=== PATIENT | female | born 1965 | race American Indian/Alaskan Native ===

== ENCOUNTER 2017-11-29 12:56 | Outpatient (CLI) | payer BC ==
--- NOTE | 2017-11-30 14:45 | Magnetic Resonance Report ---
BILATERAL BREAST MRI WITHOUT AND WITH CONTRAST: 11/29/17 12:56:00 CLINICAL: Family history of breast cancer. COMPARISON:08/09/17 screening mammogram. TECHNIQUE: Axial 1.0-mm T1 without, axial high resolution 2.0-mm T2 and axial 1.0-mm dynamic Vibrant high-resolution postcontrast T1 fat saturation sequences on a 1.5 Dennise magnet. The examination was performed with an 8 channel dedicated [employer] breast coil. Post processing with CAD and subtraction was performed on an [employer] workstation. 18.0 cc of Multihance was injected without incident for the contrast portion of the exam. Consent was obtained prior to the administration of the contrast. FINDINGS: Right: Minimal background parenchymal enhancement. No mass or suspicious enhancement. No suspicious right axillary or right internal mammary lymph nodes. Left: Minimal background parenchymal enhancement. Irregular focal non-Mass enhancement at 9 o'clock approximately 6 cm from the nipple measures 13.9 x 8.0 x 5.3 mm. It demonstrates heterogeneous enhancement with mixed kinetics, 119% peak enhancement, 95% type I persistent, 5% type II plateau and 0% type III washout waveforms. There is no mammographic correlate. No other suspicious enhancement. No suspicious left axillary or left internal mammary lymph nodes. IMPRESSION: Mildly suspicious focal non-Mass enhancement of the left breast at 9 o'clock 6 cm from the nipple. Recommend targeted left breast ultrasound to determine if there is an identifiable lesion to guide ultrasound biopsy. Consider MRI directed needle biopsy if the ultrasound is negative. RIGHT BI-RADS 1 -- Negative LEFT BI-RADS 0 -- Need Additional Imaging
== END 2017-11-29 12:57 | disposition home or self-care (01) ==
LOC: SPVIMAG 12:56
PROVIDERS: ATTEND Surgery
DX: R92.2 Inconclusive mammogram (principal); I10 Essential (primary) hypertension; E78.00 Pure hypercholesterolemia, unspecified; Z80.3 Family history of malignant neoplasm of breast
CPT/HCPCS: A9577; C8908; 77059

== ENCOUNTER 2017-12-13 07:59 | Outpatient (CLI) | payer BC ==
--- NOTE | 2017-12-13 09:36 | Ultrasound Report ---
TARGETED LEFT BREAST ULTRASOUND: 12/13/17 07:59:00 CLINICAL: Abnormal MRI with focal non-Mass enhancement at 9 o'clock 6 cm from the nipple. COMPARISON: 11/29/17 MRI FINDINGS: Ultrasound of the left breast was performed from 8 o'clock to 10 o'clock and demonstrated normal fibroglandular structures with no mass or shadowing to correlate with the MRI finding. IMPRESSION: Negative left breast ultrasound. Recommend MRI guided needle biopsy of the focal non-Mass enhancement in the left breast at 9 o'clock. BI-RADS 4A--Mildly Suspicious
== END 2017-12-13 08:00 | disposition home or self-care (01) ==
LOC: SPVWC 07:59
PROVIDERS: ATTEND Surgery
DX: R92.8 Other abnormal and inconclusive findings on diagnostic imaging of breast (principal); I10 Essential (primary) hypertension; E78.00 Pure hypercholesterolemia, unspecified

== ENCOUNTER 2017-12-20 10:58 | Outpatient (CLI) | payer BC ==
--- NOTE | 2017-12-20 16:40 | Magnetic Resonance Report ---
MRI GUIDED VACUUM ASSISTED CORE BIOPSY LEFT BREAST: 12/20/17 10:58:00 CLINICAL: Suspicious focal non-Mass enhancement identified on 11/29/17 MRI FINDINGS: Consent for the procedure was obtained. A Vibrant dynamic postcontrast series was performed on a 1.5 Dennise magnet using an 8 channel [employer] dedicated breast coil. The lesion was localized and targeted using [employer] biopsy software. The skin was anesthetized with 1% lidocaine and a small dermatotomy was made. 2% lidocaine was administered for deeper anesthesia. 9-G biopsy was performed with an [employer] vacuum assisted device from a medial approach. Imaging demonstrated satisfactory positioning of the probe and samples were obtained. A clip was placed after confirmation of adequate sampling. The probe was removed and hemostasis was achieved with pressure to the site. A sterile dressing was applied. The patient tolerated the procedure well and there were no apparent complications. A two view mammogram demonstrated no localizer clip. She was then taken to ultrasound and a hydro-otoniel was deployed at the site using the post biopsy seroma as a marker. A repeat mammogram demonstrated successful clip deployment and concordant clip placement. The patient left the department in good condition with instructions for wound care and follow-up. IMPRESSION: Uncomplicated MRI biopsy with clip placement left breast.
--- NOTE | 2017-12-21 08:06 | Mammography Report ---
LEFT DIGITAL DIAGNOSTIC MAMMOGRAM and ULTRASOUND-GUIDED CLIP PLACEMENT LEFT BREAST: 12/20/17 10:58:00 CLINICAL: For clip placement immediately status post MRI biopsy. FINDINGS: A two-view mammogram demonstrated no localizer clip from the MRI biopsy. The patient was taken to ultrasound and using sterile technique, local anesthesia with 1% lidocaine and ultrasound guidance, a hydro-otoniel clip was deployed within a well visualized biopsy cavity. A repeat two-view mammogram demonstrated concordant clip placement. IMPRESSION: Concordant clip placement status post MRI guided needle biopsy. BI-RADS CATEGORY: 4--Suspicious Pathology pending.
== END 2017-12-20 10:59 | disposition home or self-care (01) ==
LOC: SPVIMAG 10:58
PROVIDERS: ATTEND Surgery
DX: N60.12 Diffuse cystic mastopathy of left breast (principal); E78.00 Pure hypercholesterolemia, unspecified; I10 Essential (primary) hypertension
CPT/HCPCS: 19085; 76999; 77065; 88305; A9577

== ENCOUNTER 2018-06-10 10:10 | Outpatient (CLI) | payer BC ==
--- NOTE | 2018-06-10 15:19 | Mammography Report ---
LEFT DIGITAL DIAGNOSTIC MAMMOGRAM with CAD: 06/10/18 10:10:00 CLINICAL: Follow-up after benign MRI guided needle biopsy of focal non-Mass enhancement 12/20/17. COMPARISON:12/20/17 FINDINGS: The breast is heterogeneously dense, which may obscure small masses. An upper inner biopsy clip correlates with the MRI biopsy site. No mass, architectural distortion or suspicious calcifications. IMPRESSION: No mammographic evidence of malignancy. BI-RADS CATEGORY: 2 -- Benign RECOMMENDATION: Return to routine mammographic screening. ACR BI-RADS MAMMOGRAPHIC CODES: 0 = Needs additional imaging evaluation; 1 = Negative; 2 = Benign; 3 = Probably benign; 4 = Suspicious; 5 = Malignant; 6 = Known biopsy-proven malignancy COMMENT: 1. Dense breast tissue, i.e., adenosis, fibrocystic changes, etc., may obscure an underlying neoplasm. 2. Approximately 10% of cancers are not detected with mammography. 3. A negative mammography report should not delay biopsy if a clinically suspicious mass is present. COMMENT: Patient follow-up letters are generated by our [employer] application.
--- NOTE | 2018-06-12 11:08 | Magnetic Resonance Report ---
BILATERAL BREAST MRI WITHOUT AND WITH CONTRAST: 06/10/18 10:10:00 CLINICAL: Family history of breast cancer and status post left MRI benign breast biopsy 12/20/17 with pathology of benign breast tissue with nonproliferative fibrocystic changes. COMPARISON:11/29/17 and 12/20/17. TECHNIQUE: Axial 1.0-mm T1 without, axial high resolution 2.0-mm T2 and axial 1.0-mm dynamic Vibrant high-resolution postcontrast T1 fat saturation sequences on a 1.5 Dennise magnet. The examination was performed with an 8 channel dedicated [employer] breast coil. Post processing with CAD and subtraction was performed on an [employer] workstation. 19.0 cc of Multihance was injected without incident for the contrast portion of the exam. Consent was obtained prior to the administration of the contrast. FINDINGS: Right: Minimal background parenchymal enhancement. No mass or suspicious enhancement. No suspicious lymph nodes. Left: Minimal background parenchymal enhancement. No mass or suspicious enhancement. The previously described focal non-Mass enhancement of the upper inner breast is no longer identified. No suspicious lymph nodes. IMPRESSION: Normal study. Recommend routine mammographic screening. BI-RADS 1 - - Negative
== END 2018-06-10 10:11 | disposition home or self-care (01) ==
LOC: SPVWC 10:10
PROVIDERS: ATTEND Surgery
DX: R92.2 Inconclusive mammogram (principal); I10 Essential (primary) hypertension; E78.00 Pure hypercholesterolemia, unspecified
CPT/HCPCS: 77065; A9577; C8908; 77049

== ENCOUNTER 2020-12-01 08:46 | Outpatient (CLI) | payer BC ==
--- NOTE | 2020-12-02 09:22 | Mammography Report ---
DIGITAL SCREENING MAMMOGRAM WITH CAD, 12/01/2020 CLINICAL INFORMATION / INDICATION: Routine screening mammography. 3D SCREENING MAMMO TECHNIQUE: Digital bilateral 2D mammography was obtained in the craniocaudal and mediolateral obliqu e projections. This examination was interpreted with the benefit of Computer-Aided Detection analysis . COMPARISON: 11/26/2019 FINDINGS: Breast Density: The breasts are heterogeneously dense, which may obscure small masses. No dominant mass, suspicious calcifications, or architectural distortion in either breast. Biopsy clip again noted in the left breast. IMPRESSION: No mammographic evidence of malignancy. Follow up recommendation: Routine yearly BI-RADS Category 2: Benign. A "normal" or negative report should not discourage follow up or biopsy of a clinically significant f inding. A written summary of these findings will be mailed to the patient. The patient will be entered into a mammography reporting system which will generate a reminder letter for the patient's next appointmen t at the appropriate interval. The [employer] recommends yearly mammograms starting at age 40 and continuing as l lisandra as a woman is in good health. Breast MRI is recommended for women with an approximate 20-25% or greater lifetime risk of breast cancer, including women with a strong family history of breast or ova omar cancer or who have been treated for Hodgkin's disease. Signer Name: Emmett Medeiros MD Signed: 12/02/2020 9:18 AM Workstation Name: [id number]
== END 2020-12-01 08:47 | disposition home or self-care (01) ==
LOC: SPVWC 08:46
PROVIDERS: ATTEND Surgery
DX: Z12.31 Encounter for screening mammogram for malignant neoplasm of breast (principal)
CPT/HCPCS: 77063; 77067